=== PATIENT | male | born 1970 | race Hispanic/Latino ===

== ENCOUNTER → 2023-07-05 | Outpatient (CLI) | payer OTHER | END | disposition home or self-care (01) | LOC: OIH 13:14 | PROVIDERS: ATTEND Family Medicine | DX: Z13.6 Encounter for screening for cardiovascular disorders (principal) | CPT/HCPCS: 75571 ==

== ENCOUNTER → 2025-04-17 | Outpatient (CLI) | payer OTHER ==
--- NOTE | 2025-04-18 05:12 | HMCIMG ---
EXAM: CT Cardiac calcium scoring. CLINICAL HISTORY: CAD screening. TECHNIQUE: Thin collimated axial CT cardiac images were obtained. A CT scan is done according to ALARA (As Low As Reasonably Achievable). CONTRAST: None. COMPARISON: None provided. FINDINGS: Calcium Score: VESSEL Number of lesions Volume mm3 Equi. Mass/mg Calcium score LM 0 00.00 00.00 00.00 LAD 0 00.00 00.00 00.00 LCX 0 00.00 00.00 00.00 RCA 0 00.00 00.00 00.00 Total 0 00.00 00.00 00.00 IMPRESSION: The calcium score is 0. This places the patient into 0th percentile in comparison to a group of patients asymptomatic for coronary artery disease with the same age and gender. This means that 0% of males aged 50-54 have a calcium score that is lower than the patient's. /Yolanda
== END | disposition home or self-care (01) ==
LOC: RAH 11:00
PROVIDERS: ATTEND Family Medicine
DX: Z13.6 Encounter for screening for cardiovascular disorders (principal); I25.10 Atherosclerotic heart disease of native coronary artery without angina pectoris
CPT/HCPCS: 75571